=== PATIENT | male | born 1990 | race Caucasian/White ===

== ENCOUNTER 2019-08-07 11:34 | Emergency (ER) | payer OTHER, MEDICAID ==
[2019-08-07] MEDS ORDERED: Bupivacaine 0.25%/EPINEPHrine 1:200,000 30 ML SDV INFILT ONE (11:44)
[2019-08-07] MEDS ORDERED: Diphtheria,Pertussis(Acell),Tetanus Vaccine 0.5 ML Syringe IM ONE (11:44)
--- NOTE | 2019-08-07 11:53 | EDM.PDOC ---
ED HPI GENERAL MEDICAL PROBLEM - General Chief Complaint: Laceration Stated Complaint: SAW CUT LEFT THIGH Time Seen by Provider: 08/07/19 11:40 Source of Information: Reports: Patient History Limitations: Reports: No Limitations - History of Present Illness INITIAL COMMENTS - FREE TEXT/NARRATIVE: Patient states while at work using chainsaw turned to set the chainsaw down the next to him and cut his left outer thigh approximately 20 minutes ago Patient denies any numbness tingling loss of sensation or weakness no excessive amount of bleeding Last tetanus was over 15 years ago He has no medical issues no other complaints at this time Duration: Minutes: Quality: Reports: Burning (01/08) Severity: Mild Associated Symptoms: Reports: No Other Symptoms Review of Systems - Review of Systems Review Of Systems: See Below Constitutional: Reports: No Symptoms Eyes: Reports: No Symptoms Ears: Reports: No Symptoms Nose: Reports: No Symptoms Mouth/Throat: Reports: No Symptoms Respiratory: Reports: No Symptoms Musculoskeletal: Reports: Leg Pain Skin: Reports: No Symptoms, Other (Laceration to left outer thigh) Neurological: Reports: No Symptoms Psychiatric: Reports: No Symptoms ED EXAM, GENERAL - Physical Exam Exam: See Below Exam Limited By: No Limitations General Appearance: Alert, WD/WN, No Apparent Distress Throat/Mouth: Normal Inspection, Normal Lips, Normal Teeth, Normal Gums, Normal Oropharynx, Normal Voice, No Airway Compromise Respiratory/Chest: No Respiratory Distress, No Accessory Muscle Use GI/Abdominal: Normal Bowel Sounds, Soft, Non-Tender Back Exam: Full Range of Motion Extremities: Normal Inspection, Normal Range of Motion, Non-Tender, No Pedal Edema, Normal Capillary Refill Neurological: Alert, Oriented, CN II-XII Intact, Normal Cognition, Normal Gait, Normal Reflexes, No Motor/Sensory Deficits Psychiatric: Normal Affect, Normal Mood Skin Exam: Warm, Dry, Normal Color, No Rash (Exam of the left thigh 6 cm laceration by half centimeter by 4 mm no active bleeding there is no invasion into the muscle tissue patient has full range of motion 5/5 strength he is neurovascularly intact positive dorsalis pedis posterior tibialis). No: Intact Course - Vital Signs Text/Narrative:: Laceration was irrigated and cleaned with normal saline and Hibiclens closed with simple #3 5-0 Vicryl buried and simple interrupted 4-0 Ethilon number 7 stitches covered with Neosporin and Telfa pad and Kerlix patient was instructed on wound care and to remove stitches in 7-10 days with his primary care provider or with signs and symptoms return to emergency room Patient was given DTaP tetanus IM - Orders/Labs/Meds Orders: Active Orders 24 hr Category Date Time Status Vaccines to be Administered [RC] PER UNIT ROUTINE Care 08/07/19 11:45 Active Diphth,Pertuss(Acell),Tet Vac [Adacel] Med 08/07/19 11:44 Once 0.5 ml IM .ONCE ONE Lidocaine 1% w/EPINEPHrine [Xylocaine 1% with Med 08/07/19 12:06 Once EPINEPHrine 1:100,000] 20 ml INFILT ONETIME ONE Medication Orders Diphtheria/Tetanus/Acell Pertussis (Adacel) 0.5 ml IM .ONCE ONE Stop: 08/07/19 11:45 Last Admin: 08/07/19 13:04 Dose: 0.5 ml Lidocaine/Epinephrine (Xylocaine 1% With Epinephrine 1:100,000) 20 ml INFILT ONETIME ONE Stop: 08/07/19 12:07 Last Admin: 08/07/19 12:10 Dose: 20 ml Meds: Medications Generic Name Dose Route Start Last Admin Trade Name Freq PRN Reason Stop Dose Admin Diphtheria/Tetanus/Acell Pertussis 0.5 ml 08/07/19 11:44 08/07/19 13:04 Adacel IM 08/07/19 11:45 0.5 ml .ONCE ONE Administration Lidocaine/Epinephrine 20 ml 08/07/19 12:06 08/07/19 12:10 Xylocaine 1% With Epinephrine 1:100,000 INFILT 08/07/19 12:07 20 ml ONETIME ONE Administration Departure - Departure Time of Disposition: 12:40 Disposition: Home, Self-Care 01 Condition: Good Clinical Impression: Laceration of leg Qualifiers: Laterality: left - Discharge Information *PRESCRIPTION DRUG MONITORING PROGRAM REVIEWED*: No *COPY OF PRESCRIPTION DRUG MONITORING REPORT IN PATIENT [place]: No Instructions: Wound Infection, Laceration Care, Adult Referrals: PCP,Unknown [Primary Care Provider] - Forms: ED Department Discharge Additional Instructions: Follow up with her primary care provider in the next 24-48 hours (stitches in 7- 10 days Keep the area clean and dry washed with soap and water at least twice a day apply Neosporin to the area at least 2-3 times a day follow wound care instruction sheet Return to emergency room if anything gets worse or changes - Problem List & Annotations (1) Laceration of leg SNOMED Code(s): 357314335 Code(s): S81.819A - LACERATION WITHOUT FOREIGN BODY, UNSP LOWER LEG, INIT ENCNTR Status: Acute Current Visit: Yes Qualifiers: Laterality: left - My Orders Last 24 Hours: My Active Orders 08/07/19 11:44 Diphth,Pertuss(Acell),Tet Vac [Adacel] 0.5 ml IM .ONCE ONE 08/07/19 11:45 Vaccines to be Administered [RC] PER UNIT ROUTINE 08/07/19 12:06 Lidocaine 1% w/EPINEPHrine [Xylocaine 1% with EPINEPHrine 1:100,000] 20 ml INFILT ONETIME ONE - Assessment/Plan Last 24 Hours: My Active Orders 08/07/19 11:44 Diphth,Pertuss(Acell),Tet Vac [Adacel] 0.5 ml IM .ONCE ONE 08/07/19 11:45 Vaccines to be Administered [RC] PER UNIT ROUTINE 08/07/19 12:06 Lidocaine 1% w/EPINEPHrine [Xylocaine 1% with EPINEPHrine 1:100,000] 20 ml INFILT ONETIME ONE
[2019-08-07] MEDS ORDERED: Lidocaine 1% with EPINEPHrine 1:100,000 20 ML MDV INFILT ONE (12:06)
== END 2019-08-07 13:15 | disposition home or self-care (01) ==
LOC: VM.ED 11:34
DX: S71.112A Laceration without foreign body, left thigh, initial encounter (principal); W29.3XXA Contact with powered garden and outdoor hand tools and machinery, initial encounter; Y92.89 Other specified places as the place of occurrence of the external cause; Y99.0 Civilian activity done for income or pay; Z23 Encounter for immunization
CPT/HCPCS: 12002; 90471; 90715; 99283

== ENCOUNTER 2023-05-19 00:20 | Emergency (ER) | payer MEDICAID | END 2023-05-19 00:56 | disposition home or self-care (01) | LOC: VM.ED 00:20 | DX: R25.2 Cramp and spasm (principal); H53.9 Unspecified visual disturbance; R03.0 Elevated blood-pressure reading, without diagnosis of hypertension | CPT/HCPCS: 99283 ==